=== PATIENT | female | born 1970 | race Hispanic/Latino ===

== ENCOUNTER 2022-04-18 18:31 | Emergency (ER) | payer OTHER ==
[~2022-04-18] VITALS: Ht 157.5 cm; Wt 65.3 kg
[2022-04-18] MEDS ORDERED: SODIUM CHLORIDE 0.9% 1000ML 1,000 ML IV STA (19:08)
[2022-04-18] MEDS ORDERED: FAMOTIDINE 20 MG/2 ML VIAL IV ONE ×2 (19:15→19:33)
[2022-04-18] MEDS ORDERED: ONDANSETRON HCL INJ 2MG/ML 2ML 2 MG/ML VIAL IV ONE (19:15)
[2022-04-18] MEDS ORDERED: ONDANSETRON HCL INJ 2MG/ML 2ML 2 MG/ML VIAL ONE (19:33)
[2022-04-18] MEDS ORDERED: IOPAMIDOL 370 MG/ML 100 ML INFUS..BTL INJ ONE (19:45)
[2022-04-18] MEDS ORDERED: MIRALAX17 GM PO (21:24)
[2022-04-18] MEDS ORDERED: MAGNESIUM CITR296 ML PO (21:24)
[2022-04-18 21:38] VITALS: BP 152/90
== END 2022-04-18 21:38 | disposition home or self-care (01) ==
LOC: FSED 19:03
DX: R10.12 Left upper quadrant pain (principal); R10.11 Right upper quadrant pain; E11.9 Type 2 diabetes mellitus without complications
CPT/HCPCS: 74176; 80048; 80076; 81003; 85025; 96374; 96376; 99284; J2405; Q9967